=== PATIENT | male | born 1955 | race Caucasian/White ===

== ENCOUNTER 2016-06-09 16:38 | Emergency (ER) | payer OTHER ==
[2016-06-09 17:02] VITALS: TEMP 98.3; BMI 32.5
--- NOTE | 2016-06-09 17:29 | ED PDOC ---
Arrival/HPI - General Historian: Patient - History of Present Illness Time/Duration: > week Symptom Course: Intermittent <Swapna Alonso - Last Filed: 06/09/16 18:25> <Martin Mack - Last Filed: 06/09/16 19:05> - General Chief Complaint: Flu-like Symptoms Time Seen by Provider: 06/09/16 17:00 - Critical Care Narrative Critical Care (Text): 06/09/16 17:43 61 year old male with past medical history of hypertension and diabetes [place] [facility] complaining for weakness and flu like symptoms. Patient reports the flu like symptoms started on 05/27/16, these symptoms include weakness, dizziness, shortness of breath associated with coughs, runny nose, generalized body aches and decreased appetite. Patient states this morning he felt "very weak" after eating a piece of bagel, which prompted him to come to the ED. No prior history of the same. Patient states he has been compliant with his medications and blood sugar checks and they all have been normal. Patient has a daughter that is also sick with similar symptoms. Denies having nausea, vomiting, diarrhea, or urinary complains. (Swapna Alonso) Past Medical History - Provider Review Nursing Documentation Reviewed: Yes - Cardiac Hx Cardiac Disorders: Yes - Endocrine/Metabolic Hx Endocrine Disorders: Yes Hx Diabetes Mellitus Type 2: Yes - Psychiatric Hx Substance Use: No - Surgical History Hx Cholecystectomy: Yes - Anesthesia Hx Anesthesia: Yes Hx Anesthesia Reactions: No Hx Malignant Hyperthermia: No <Swapna Alonso - Last Filed: 06/09/16 18:25> Family/Social History - Physician Review Nursing Documentation Reviewed: Yes Family/Social History: No Known Family HX Smoking Status: Heavy Smoker > 10 Cigarettes Daily Hx Alcohol Use: No Hx Substance Use: No <Swapna Alonso - Last Filed: 06/09/16 18:25> Allergies/Home Meds <Swapna Alonso - Last Filed: 06/09/16 18:25> <Martin Mack - Last Filed: 06/09/16 19:05> Allergies/Adverse Reactions: Allergies levofloxacin [From Levaquin] Allergy (Verified 06/09/16 17:02) ANGIOEDEMA Penicillins Allergy (Verified 06/09/16 17:02) ANAPHYLAXIS Home Medications: Home Meds Medication Instructions Recorded Confirmed Carvedilol [Coreg] 6.25 mg PO BID 06/09/16 06/09/16 Glimepiride [amaRYL] 2 mg PO DAILY 06/09/16 06/09/16 Metformin ER [Glucophage XR] 500 mg PO TID 06/09/16 06/09/16 Olmesartan/Amlodipin/Hcthiazid 1 tab PO DAILY 06/09/16 06/09/16 [Tribenzor 5 mg-25 mg-40 mg] Review of Systems - Physician Review All systems were reviewed & negative as marked: Yes - Review of Systems Constitutional: Fatigue, Fevers. absent: Normal Eyes: absent: Vision Changes ENT: absent: Hearing Changes Respiratory: SOB, Cough. absent: Normal Cardiovascular: Normal. absent: Chest Pain, Palpitations, Syncope Gastrointestinal: Normal. absent: Abdominal Pain, Nausea, Vomiting Genitourinary Male: Normal. absent: Dysuria, Frequency, Hematuria Musculoskeletal: Myalgias. absent: Normal Neurological: Headache, Dizziness, Other (generalized dizziness). absent: Normal Endocrine: Normal Psychiatric: Normal. absent: Anxiety, Depression <Swapna Alonso - Last Filed: 06/09/16 18:25> Physical Exam Vital Signs Reviewed: Yes Temperature: Afebrile Blood Pressure: Hypertensive Pulse: Regular Respiratory Rate: Normal Appearance: Positive for: Non-Toxic Pain Distress: None Mental Status: Positive for: Alert and Oriented X 3 - Systems Exam Head: Present: Atraumatic, Normocephalic Pupils: Present: PERRL Extroacular Muscles: Present: EOMI Conjunctiva: Present: Normal Mouth: Present: Moist Mucous Membranes Pharnyx: No: ERYTHEMA, EXUDATE Respiratory/Chest: Present: Good Air Exchange. No: Respiratory Distress, Accessory Muscle Use Cardiovascular: Present: Regular Rate and Rhythm, Normal S1, S2, Peripheal Pulses Present. No: Murmurs Abdomen: Present: Normal Bowel Sounds. No: Tenderness, Distention, Peritoneal Signs, McBurney's Point Tender Upper Extremity: Present: Normal Inspection, Neurovascularly Intact. No: Cyanosis, Edema Lower Extremity: Present: Normal Inspection, Neurovascularly Intact. No: Edema Neurological: Present: GCS=15, CN II-XII Intact, Speech Normal Skin: Present: Warm, Dry, Normal Color. No: Rashes Psychiatric: Present: Alert, Oriented x 3, Normal Insight, Normal Concentration <Alonso,Weilin - Last Filed: 06/09/16 18:25> Vital Signs Temp Pulse Resp BP Pulse Ox 06/09/16 18:48 65 17 156/90 H 97 06/09/16 18:36 66 18 158/91 H 96 06/09/16 16:57 98.3 F 67 18 161/103 H 95 Medical Decision Making <Swapna Alonso - Last Filed: 06/09/16 18:25> <Martin Mack - Last Filed: 06/09/16 19:05> ED Course and Treatment: 06/09/16 17:45 -IVF -CBC, CMP -CXR -Robitussin -Reassess 06/09/16 18:08 Patient ambulated to take CXR without any difficulties (Swapna Alonso) Patient seen and examined with resident. Came up with treatment and disposition plan with resident. Patient is a 61 year old male who comes to the emergency department for evaluation of generalized weakness and flu like symptoms. Additional HPI details as noted by the resident. Physical examination reveals no acute findings. Will obtain Chest Xray and lab work to rule out bronchitis vs pneumonia vs viral illness. Will give patient Robitussin and IV fluids for symptom relief. Chest Xray shows no acute findings. EKG shows Normal Sinus Rhythm at 93 bpm with 1st degree av block, which is similar to previous EKG on 04/16/16. On re-evaluation, the patient feels better and is in no acute distress. Results and plans were discussed with the patient who expressed understanding. Patient given the opportunity to ask questions, all questions answered. Patient is in agreement with plan to be discharged home. Patient is stable for discharge. Patient was advised to follow up with physician/clinic in 1-2 days or return to the emergency department if symptoms worsen or new concerning symptoms should arise. (Martin Mack) - Lab Interpretations Lab Results: 06/09/16 17:25 06/09/16 17:25 Lab Results 06/09/16 17:25: WBC 6.6, RBC 5.41, Hgb 15.2, Hct 45.8, MCV 84.7, MCH 28.1, MCHC 33.2, RDW 14.2, Plt Count 275, MPV 10.5, Gran % 50.1, Lymph % (Auto) 36.1 H, [place] % (Auto) 6.5 H, Eos % (Auto) 6.5 H, Baso % (Auto) 0.8, Gran # 3.29, Lymph # 2.4, [place] # 0.4, Eos # 0.4, Baso # 0.05, Sodium 137, Potassium 4.1, Chloride 99, Carbon Dioxide 32, Anion Gap 10, BUN 18, Creatinine 0.7, Est GFR ( Amer) > 60, Est GFR (Non-Af Amer) > 60, Random Glucose 127 H, Calcium 9.5, Total Bilirubin 0.9, AST 28, ALT 35, Alkaline Phosphatase 156 H, Total Protein 7.6, Albumin 4.0, Globulin 3.6, Albumin/Globulin Ratio 1.1 - RAD Interpretation Narrative RAD Interpretations (Text): 06/09/16 18:25 CXR showed no acute pathologies, read by me (Swapna Alonso) Radiology Orders: 06/09/16 17:41 CXR [CHEST TWO VIEWS (PA/LAT)] [RAD] Stat - Medication Orders Current Medication Orders: Discontinued Medications Guaifenesin (Robitussin) 100 mg PO Q4H PRN PRN Reason: Cough Sodium Chloride (Sodium Chloride 0.9%) 1,000 mls @ 999 mls/hr IV .Q1H1M STA Stop: 06/09/16 18:42 Last Admin: 06/09/16 17:54 Dose: 999 MLS/HR eMAR Start Stop Document 06/09/16 17:54 SF (Rec: 06/09/16 17:[address] [facility] Intravenous Solution Start Date 06/09/16 Start Time 17:54 End Date 06/09/16 End time 18:55 Total Infusion Time 61 <Swapna Alonso - Last Filed: 06/09/16 18:25> - PA / DOOR CAPTAIN / Resident Statement MD/DO has examined the patient and agrees with the treatment plan. - Scribe Statement The provider has reviewed the documentation as recorded by the Scribe <Martin Mack - Last Filed: 06/09/16 19:05> - Scribe Statement Christin Villanueva training under Keturah Santiago (Martin Mack) Disposition/Present on Arrival - Present on Arrival Any Indicators Present on Arrival: No History of DVT/PE: No History of Uncontrolled Diabetes: No Urinary Catheter: No History of Decub. Ulcer: No History Surgical Site Infection Following: None - Disposition Have Diagnosis and Disposition been Completed?: Yes Disposition Time: 18:31 Patient Plan: Discharge <Swapna Alonso - Last Filed: 06/09/16 18:25> - Present on Arrival Any Indicators Present on Arrival: No - Disposition Have Diagnosis and Disposition been Completed?: Yes Disposition Time: 19:05 Patient Plan: Discharge <Phil Macko Suraj - Last Filed: 06/09/16 19:05> - Disposition Diagnosis: Flu-like symptoms, Viral syndrome Disposition: HOME/ ROUTINE Condition: STABLE Discharge Instructions (ExitCare): Analgesic/Antihistamine/Antitussive (By mouth) Additional Instructions: Shun Turner, thank you for letting us take care of you today. Your provider was Dr. Mack. You were treated for viral syndrome. The emergency medical care you received today was directed at your acute symptoms. If you were prescribed any medication, please fill it and take as directed. It may take several days for your symptoms to resolve. Return to the Emergency Department if your symptoms worsen, do not improve, or if you have any other problems. Please contact your doctor or call one of the physicians/clinics you have been referred to that are listed on the Patient Visit Information form that is included in your discharge packet. Bring any paperwork you were given at discharge with you along with any medications you are taking to your follow up visit. Our treatment cannot replace ongoing medical care by a primary care provider (PCP) outside of the emergency department. Thank you for allowing the [facility] team to be part of your care today. If you had an X-Ray or CT scan: A Radiologist will review the ED reading if any change in treatment is needed we will contact you. If you had a blood, urine, or wound culture: It will take several days for the results, if any change in treatment is needed we will contact you. If you had an STI test: It will take 48 hours for the results. Please call after 1 week if you have not heard back. Prescriptions: guaiFENesin [Robitussin] 100 mg PO Q6 PRN #1 dose PRN Reason: Cough Referrals: Isabel Turner MD [Primary Care Provider] - Follow up with primary
[2016-06-09] MEDS ORDERED: guaiFENesin 100 mg/5 ml Syrup UD PO PRN (17:42)
[2016-06-09] MEDS ORDERED: Sodium Chloride 0.9% 1,000 ML IV STA (17:42)
[2016-06-09 17:56] LABS: ADD MANUAL DIFF? NO
[2016-06-09 18:03] LABS: BASO # 0.05 K/mm3 (0.0-2.0); BASO % 0.8 % (0.0-3.0); EOS # 0.4 (0.0-0.7); EOS % 6.5 % (1.5-5.0); GRAN # 3.29 (1.4-6.5); GRAN % 50.1 % (50.0-68.0); HEMATOCRIT 45.8 % (42.0-52.0); LYMPH # 2.4 (1.2-3.4); LYMPH % 36.1 % (22.0-35.0); MEAN CELL VOLUME 84.7 fL (80.0-105.0); MEAN CORPUSCULAR HEMOGLOBIN 28.1 pg (25.0-35.0); MEAN CORPUSCULAR HGB CONC 33.2 g/dl (31.0-37.0); MEAN PLATELET VOLUME 10.5 fl (7.0-11.0); MONO # 0.4 (0.1-0.6); MONO % 6.5 % (1.0-6.0); PLATELET COUNT 275 10^3/uL (120.0-450.0); RED CELL DISTRIBUTION WIDTH 14.2 % (11.5-14.5); WHITE BLOOD COUNT 6.6 10^3/ul (4.5-11.0)
[2016-06-09 18:14] LABS: ALB/GLOB RATIO 1.1 (1.1-1.8); ALKALINE PHOSPHATASE 156 U/L (38-133); ALT/SGPT 35 U/L (7-56); AST/SGOT 28 U/L (15-59); BILIRUBIN,TOTAL 0.9 mg/dL (0.2-1.3); BLOOD UREA NITROGEN 18 mg/dL (7-21); CALCIUM 9.5 mg/dL (8.4-10.5); CARBON DIOXIDE 32 mmol/L (21-33); CHLORIDE 99 mmol/L (98-107); GFR AFRICAN-AMERICAN > 60; GLUCOSE,RANDOM 127 mg/dL (70-110); POTASSIUM 4.1 mmol/L (3.6-5.0); SODIUM 137 mmol/L (132-148); TOTAL PROTEIN 7.6 g/dL (5.8-8.3)
[2016-06-09 18:50] VITALS: BP 156/90; PULSE 65; RESP 17; O2SAT 97
--- NOTE | 2016-06-10 08:02 | RAD ---
HISTORY: r/o pneumonia COMPARISON: No prior. TECHNIQUE: Chest PA and lateral FINDINGS: LUNGS: No consolidation seen. There are sub cm nodular opacities in left infrahilar location the left lung base probably representing vessels. No comparison chest x-rays are available. PLEURA: No significant pleural effusion identified. No pneumothorax apparent. CARDIOVASCULAR: Top-normal heart size. Tortuous descending thoracic aorta OSSEOUS STRUCTURES: Bilateral patchy sclerotic changes of the humeral head with cortical thickening patchy sclerotic changes in a mid thoracic vertebral body. No compression fracture suggested. Thoracic spondylosis. VISUALIZED UPPER ABDOMEN: Normal. OTHER FINDINGS: None. IMPRESSION: No consolidation to suggest pneumonia. Recommend comparison with prior chest x-rays regarding probable of coursing vessels. Top-normal heart size Abnormal osseous bone mineralization -clinical correlation is needed some note patient has Paget's disease or other known bony pathology. Follow-up recommended.
== END 2016-06-09 18:50 | disposition home or self-care (01) ==
LOC: MERGE 16:38 → ED 16:38
DX: J11.1 Influenza due to unidentified influenza virus with other respiratory manifestations (principal)
CPT/HCPCS: 71020; 80053; 85025; 96360; 99284; J7040